=== PATIENT | female | born 1980 | race Caucasian/White ===

== ENCOUNTER 2021-04-28 23:53 | Emergency (ER) | payer SELFPAY ==
[2021-04-28 23:57] VITALS: BP 162/96; PULSE 51; RESP 16; TEMP 36.6; O2SAT 98; BMI 23.6
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
[2021-04-29 02:07] VITALS: RESP 16; TEMP 36.6; O2SAT 98
== END 2021-04-29 02:09 | disposition home or self-care (01) ==
PROVIDERS: Emergency Provider Nurse Practitioner Family; PCP Nurse Practitioner
DX: R07.89 Other chest pain (principal); M54.6 Pain in thoracic spine; M54.2 Cervicalgia; V89.2XXA Person injured in unspecified motor-vehicle accident, traffic, initial encounter
CPT/HCPCS: 71046; 72040; 99282

== ENCOUNTER 2021-11-12 12:48 | Outpatient (CLI) | payer SELFPAY ==
--- NOTE | 2021-11-12 13:10 | XR_ITS ---
WS: [id number] XR thoracic spine 3V* [id number] REASON FOR EXAM: M54.6 - Pain in thoracic spine FINDINGS: Mild rotatory scoliosis convex left on the AP view. Mild dorsal kyphosis on the lateral view. No significant compression deformity within the thoracic spine. No focal vertebral body lesion. Disc space narrowing with osteophytic spurring in the mid and lower thoracic spine. This is most prom inent at T9 and T8. XR/XR thoracic spine 3V* [id number] IMPRESSION: Degenerative spondylosis in the mid and lower thoracic spine. Mild thoracic kyphoscoliosis.
--- NOTE | 2021-11-12 13:10 | XR_ITS ---
WS: [id number] XR ribs RT mn 3V w CXR1V [id number] REASON FOR EXAM: R07.81 - Pleurodynia FINDINGS: Mild tortuosity the thoracic aorta. Normal heart size. Calcified granulomatous disease bilaterally. No acute pulmonary parenchymal or pleural abnormality. Moderate degenerative spondylosis in the mid and lower thoracic spine. XR/XR ribs RT mn 3V w CXR1V [id number] IMPRESSION: No acute chest abnormality. The chest appears unchanged compared to 04/29/2021.
== END 2021-11-12 12:49 | disposition home or self-care (01) ==
PROVIDERS: PCP Nurse Practitioner; Visit Provider Nurse Practitioner Family
DX: R07.81 Pleurodynia (principal); R05.9 Cough, unspecified; V89.2XXA Person injured in unspecified motor-vehicle accident, traffic, initial encounter; M54.6 Pain in thoracic spine; M47.894 Other spondylosis, thoracic region; M41.9 Scoliosis, unspecified
CPT/HCPCS: 71101; 72072

== ENCOUNTER → 2021-11-17 11:06 | Outpatient (BNVA) | payer SELFPAY | PROVIDERS: PCP Nurse Practitioner; Visit Provider Orthopaedic Surgery | DX: M54.50 Low back pain, unspecified (principal); S39.92XA Unspecified injury of lower back, initial encounter; V89.2XXA Person injured in unspecified motor-vehicle accident, traffic, initial encounter | CPT/HCPCS: 72100 ==

== ENCOUNTER → 2022-03-04 10:33 | Outpatient (BNVA) | payer SELFPAY | PROVIDERS: PCP Nurse Practitioner; Visit Provider Nurse Practitioner | DX: R05.9 Cough, unspecified (principal); F41.1 Generalized anxiety disorder | CPT/HCPCS: 71046; 85025 ==

== ENCOUNTER → 2023-05-04 08:48 | Outpatient (BNVA) | payer SELFPAY | PROVIDERS: PCP Nurse Practitioner; Visit Provider Nurse Practitioner Family | DX: J02.9 Acute pharyngitis, unspecified (principal) | CPT/HCPCS: 87880 ==

== ENCOUNTER → 2024-04-04 14:18 | Outpatient (BNVA) | payer SELFPAY | PROVIDERS: PCP Nurse Practitioner; Visit Provider Nurse Practitioner | DX: N39.0 Urinary tract infection, site not specified (principal); R50.9 Fever, unspecified | CPT/HCPCS: 81000; 87077; 87086; 87184; 87400 ==